=== PATIENT | male | born 1955 | race Caucasian/White ===

== ENCOUNTER 2017-12-13 22:19 | Emergency (ER) | payer OTHER ==
[2017-12-13 22:26] VITALS: BP 133/70
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
[2017-12-13] MEDS ORDERED: LET GEL TOPICAL 1 EA SYR TP ONE (22:37)
[2017-12-13] MEDS ORDERED: HYDROCOD/APAP 5/325 PREPACK#6 BTL TAKEHOME ONE (23:32)
== END 2017-12-14 00:01 | disposition home or self-care (01) ==
PROC: 2W3DX1Z Immobilization of Left Lower Arm using Splint (ICD-10-PCS; principal; 2017-12-13)
DX: S52.502A Unspecified fracture of the lower end of left radius, initial encounter for closed fracture (principal); S80.212A Abrasion, left knee, initial encounter; V48.9XXA Unspecified car occupant injured in noncollision transport accident in traffic accident, initial encounter; Y92.410 Unspecified street and highway as the place of occurrence of the external cause; Y93.9 Activity, unspecified; Y99.9 Unspecified external cause status
CPT/HCPCS: A4565